=== PATIENT | male | born 1975 | race African-American/Black ===

== ENCOUNTER 2022-05-30 18:52 | Emergency (ER) | payer OTHER ==
[2022-05-30] MEDS ORDERED: predniSONE 20 MG TAB ONE (20:03)
[2022-05-30] MEDS ORDERED: Ketorolac Tromethamine 30 MG/ML VIAL ONE (20:03)
== END 2022-05-30 20:12 | disposition home or self-care (01) ==
LOC: ERS 18:52 → EDSEX 18:52 → ERS 20:12
DX: M10.9 Gout, unspecified (principal); I10 Essential (primary) hypertension
CPT/HCPCS: 96374; J1885; J7512